=== PATIENT | male | born 1945 | race Caucasian/White ===

== ENCOUNTER 2017-01-08 21:09 | Inpatient (IN) | payer MEDICARE, OTHER ==
[~2017-01-08] VITALS: Ht 172.7 cm; Wt 74.0 kg
[2017-01-08] MEDS ORDERED: ROSU5TAB PO (21:21)
[2017-01-08] MEDS ORDERED: ASPI-496 PO (21:21)
[2017-01-08] MEDS ORDERED: ASPIRIN 325 MG TABLET PO STA (21:21)
[2017-01-08] MEDS ORDERED: NITR0.4T8 SL (21:30)
[2017-01-08] MEDS ORDERED: NITROGLYCERIN 0.4 MG BOTTLE (25 TABS) SL PRN (21:30)
[2017-01-08] MEDS: SODIUM CHLORIDE 0.9% 1,000 ML IV SCH (21:36)
[2017-01-08] MEDS ORDERED: FENTANYL PF 100 MCG/2ML ONE (21:41)
[2017-01-08] MEDS ORDERED: TICAGRELOR 90 MG TABLET ONE (21:41)
[2017-01-08] MEDS ORDERED: MIDAZOLAM 1 MG/ML, 5ML ONE (21:41)
[2017-01-08] MEDS ORDERED: NITROGLYCERIN 5 MG/ML, 10ML ONE (21:41)
[2017-01-08] MEDS ORDERED: VERAPAMIL 2.5 MG/ML, 2ML ONE (21:41)
[2017-01-08] MEDS ORDERED: BIVALIRUDIN 250 MG ONE (21:42)
[2017-01-08] MEDS ORDERED: LIDOCAINE 2%, 20ML ONE (21:42)
[2017-01-08] MEDS ORDERED: HEPARIN 1,000 UNITS/ML, 10ML ONE (21:42)
[2017-01-08] MEDS ORDERED: SODIUM CHLORIDE 0.9% 1,000 ML IV ONE (22:05)
[2017-01-08] MEDS ORDERED: SODIUM CHLORIDE 0.9% 1,000 ML IV SCH (22:26)
[2017-01-08] MEDS ORDERED: ENALAPRILAT 1.25 MG/ML, 2ML IVPush PRN (22:30)
[2017-01-08] MEDS ORDERED: OXYcodone IR 5MG TABLET PO PRN (22:30)
[2017-01-08] MEDS ORDERED: POLYETHYLENE GLYCOL 17 GM PACKET PO PRN (22:30)
[2017-01-08] MEDS ORDERED: BISACODYL 10 MG SUPP PR PRN (22:30)
[2017-01-08] MEDS ORDERED: hydrALAzine 20 MG/ML, 1ML IVPush PRN (22:30)
[2017-01-08] MEDS ORDERED: DOCUSATE 100 MG CAPSULE PO PRN (22:30)
[2017-01-08] MEDS ORDERED: morphine SULFATE 10 MG/ML, 1ML IVPush PRN (22:30)
[2017-01-08] MEDS ORDERED: MORPHINE SULFATE 4 MG/ML, 1ML IVPush PRN (22:30)
[2017-01-08] MEDS ORDERED: ONDANSETRON 2MG/ML, 2ML IVPush PRN (22:30)
[2017-01-08] MEDS ORDERED: PHENYLEPHRINE 10 MG/ML ONE (23:27)
[2017-01-08] MEDS ORDERED: EPTIFIBATIDE 20 MG/10 ML ONE ×2 (23:28→23:31)
[2017-01-08] MEDS ORDERED: ADENOSINE 6 MG/2 ML ONE (23:32)
[2017-01-09] MEDS ORDERED: PHENYLEPHRINE 10 MG/ML ONE
[2017-01-09] MEDS ORDERED: AMIODARONE 150 MG in DEXTROSE 5% 100 ML IV ONE (00:30)
[2017-01-09] MEDS ORDERED: MAALOX/HYOSCYAMINE/LIDOCAINE 45 ML BOTTLE PO ONE ×2 (00:30→01:30)
[2017-01-09] MEDS ORDERED: AMIODARONE 900 MG in DEXTROSE 5% 482 ML IV PRN (00:30)
[2017-01-09] MEDS ORDERED: FILTER 0.22 MICRON IV PRN (00:30)
[2017-01-09] MEDS ORDERED: BISACODYL 5 MG EC TABLET PO PRN (01:00)
[2017-01-09] MEDS ORDERED: ACETAMINOPHEN 325 MG TABLET PO PRN (01:00)
[2017-01-09] MEDS ORDERED: BISACODYL 10 MG SUPP PR PRN (01:00)
[2017-01-09] MEDS ORDERED: PHENYLEPHRINE 10 MG in SODIUM CHLORIDE 0.9% 249 ML IV PRN (01:00)
[2017-01-09] MEDS ORDERED: SODIUM CHLORIDE 0.9% 1,000 ML IV SCH (01:00)
[2017-01-09 01:22] VITALS: BP 107/76
[2017-01-09] MEDS: ENOXAPARIN 40 MG/0.4 ML SQ SCH (01:48)
[2017-01-09] MEDS: ONDANSETRON 2MG/ML, 2ML IV PRN ×2 (01:48→10:08)
[2017-01-09 01:56] LABS: IS PT STATUS REG ER OR PRE ER? NO
[2017-01-09] MEDS: ONDANSETRON 2MG/ML, 2ML IVPush PRN ×2 (02:00→10:06)
[2017-01-09] MEDS: SODIUM CHLORIDE 0.9% 1,000 ML IV SCH (02:51)
[2017-01-09] MEDS: ACETAMINOPHEN 325 MG TABLET PO PRN ×2 (02:55→11:00)
[2017-01-09] MEDS: ZOLPIDEM 5MG TABLET PO PRN ×2 (04:34→21:18)
[2017-01-09 04:47] LABS: PATH.CAST-FLAG NOT PRESENT; SPERM-FLAG NOT PRESENT; SRC-FLAG NOT PRESENT; XTAL-FLAG NOT PRESENT; YLC-FLAG NOT PRESENT
[2017-01-09 05:11] LABS: ASPARTATE AMINO TRANSFERASE 419 U/L (15-37); BLOOD UREA NITROGEN 22 mg/dL (7-18)
[2017-01-09] MEDS: EPTIFIBATIDE 100 ML IV SCH ×2 (05:56)
[2017-01-09] MEDS: ASPIRIN 81 MG TABLET EC PO SCH (05:56)
[2017-01-09 06:00] VITALS: BP 111/82
[2017-01-09] MEDS ORDERED: ASPIRIN 325 MG TABLET EC PO SCH (06:00)
[2017-01-09 07:40] LABS: IS PT STATUS REG ER OR PRE ER? NO
[2017-01-09] MEDS ORDERED: DOPAMINE/D5W PMX 250 ML ONE (08:39)
[2017-01-09] MEDS ORDERED: ASPIRIN 81 MG TABLET EC PO SCH (09:00)
[2017-01-09] MEDS: TICAGRELOR 90 MG TABLET PO SCH ×2 (10:01→20:36)
[2017-01-09] MEDS: SENNA/DOCUSATE TABLET PO SCH (10:01)
[2017-01-09] MEDS: CARVEDILOL 6.25 MG TABLET PO SCH ×2 (11:00→20:36)
[2017-01-09] MEDS: LISINOPRIL 5 MG TABLET PO SCH ×2 (11:00→20:40)
[2017-01-09] MEDS: FAMOTIDINE 20 MG TABLET PO SCH ×2 (11:00→20:40)
[2017-01-09 13:19] LABS: IS PT STATUS REG ER OR PRE ER? NO
[2017-01-09 17:34] VITALS: BP 113/56
[2017-01-09 20:30] VITALS: BP 126/70
[2017-01-09] MEDS: ATORVASTATIN 80 MG TABLET PO SCH (20:37)
[2017-01-09] MEDS ORDERED: ATORVASTATIN 40 MG TABLET PO SCH (21:00)
[2017-01-10 00:43] VITALS: BP 121/77
[2017-01-10] MEDS: ENOXAPARIN 40 MG/0.4 ML SQ SCH (00:46)
[2017-01-10 05:07] LABS: BLOOD UREA NITROGEN 17 mg/dL (7-18)
[2017-01-10 05:10] LABS: ASPARTATE AMINO TRANSFERASE 240 U/L (15-37)
[2017-01-10] MEDS: ASPIRIN 81 MG TABLET EC PO SCH (05:44)
[2017-01-10] MEDS: CARVEDILOL 6.25 MG TABLET PO SCH ×2 (05:44→17:46)
[2017-01-10 08:03] VITALS: BP 100/66
[2017-01-10] MEDS ORDERED: CLOPIDOGREL 300 MG TABLET PO ONE (08:30)
[2017-01-10] MEDS: IRBESARTAN 150 MG TABLET PO SCH (09:00)
[2017-01-10] MEDS: SENNA/DOCUSATE TABLET PO SCH (09:00)
[2017-01-10] MEDS ORDERED: FUROSEMIDE 20 MG/2 ML IV ONE ×2 (09:30→15:00)
[2017-01-10] MEDS: FAMOTIDINE 20 MG TABLET PO SCH ×2 (09:33→21:30)
[2017-01-10] MEDS ORDERED: FUROSEMIDE 20 MG/2 ML ONE (09:46)
[2017-01-10] MEDS ORDERED: GUAIFENESIN/COD200MG-20MG/10ML LIQUID PO PRN (10:00)
[2017-01-10] MEDS: ALUMINUM/MAG/SIMETHICONE 30 ML UDC PO PRN ×2 (11:47→17:46)
[2017-01-10 13:20] VITALS: BP 102/68
[2017-01-10] MEDS: ATORVASTATIN 80 MG TABLET PO SCH (21:00)
[2017-01-10 21:20] VITALS: BP 102/66
[2017-01-10] MEDS: ZOLPIDEM 5MG TABLET PO PRN (21:30)
[2017-01-11 00:49] VITALS: BP 96/91
[2017-01-11] MEDS: ENOXAPARIN 40 MG/0.4 ML SQ SCH (01:16)
[2017-01-11] MEDS: ASPIRIN 81 MG TABLET EC PO SCH (05:47)
[2017-01-11] MEDS: CARVEDILOL 6.25 MG TABLET PO SCH (05:47)
[2017-01-11 05:54] LABS: ASPARTATE AMINO TRANSFERASE 130 U/L (15-37); BLOOD UREA NITROGEN 17 mg/dL (7-18)
[2017-01-11 06:30] VITALS: BP 97/62
[2017-01-11] MEDS: SENNA/DOCUSATE TABLET PO SCH (08:02)
[2017-01-11] MEDS: IRBESARTAN 150 MG TABLET PO SCH (08:02)
[2017-01-11] MEDS: FAMOTIDINE 20 MG TABLET PO SCH (08:02)
[2017-01-11] MEDS ORDERED: CLOPIDOGREL 75 MG TABLET PO SCH (09:00)
[2017-01-11 10:05] VITALS: BP 97/61
[2017-01-11] MEDS ORDERED: FURO-93 PO (10:18)
[2017-01-11] MEDS ORDERED: CLOP75TA PO (10:18)
[2017-01-11] MEDS ORDERED: IRBE150T49 PO (10:18)
[2017-01-11] MEDS ORDERED: CARV3.12 PO (10:18)
[2017-01-11] MEDS ORDERED: FUROSEMIDE 20 MG TABLET PO SCH (10:30)
== END 2017-01-11 15:39 | disposition home or self-care (01) | DRG 246 ==
LOC: ED 22:23 → EDIP 22:26 → CCU 01-09 00:07 → 5SO 01-09 13:11 → DCLOUNGE 01-11 13:00
PROVIDERS: ADMIT Internal Medicine; ATTEND Internal Medicine
PROC: 027034Z Dilation of Coronary Artery, One Artery with Drug-eluting Intraluminal Device, Percutaneous Approach (ICD-10-PCS; principal; 2017-01-09)
PROC: 4A023N7 Measurement of Cardiac Sampling and Pressure, Left Heart, Percutaneous Approach (ICD-10-PCS; 2017-01-09)
PROC: B2111ZZ Fluoroscopy of Multiple Coronary Arteries using Low Osmolar Contrast (ICD-10-PCS; 2017-01-09)
PROC: B2151ZZ Fluoroscopy of Left Heart using Low Osmolar Contrast (ICD-10-PCS; 2017-01-09)
DX: I21.09 ST elevation (STEMI) myocardial infarction involving other coronary artery of anterior wall (principal); I50.21 Acute systolic (congestive) heart failure; D68.69 Other thrombophilia; E78.5 Hyperlipidemia, unspecified; I95.9 Hypotension, unspecified; K30 Functional dyspepsia; R79.89 Other specified abnormal findings of blood chemistry; R05 Cough; I48.0 Paroxysmal atrial fibrillation; I11.0 Hypertensive heart disease with heart failure; I25.10 Atherosclerotic heart disease of native coronary artery without angina pectoris; I25.5 Ischemic cardiomyopathy; Z88.1 Allergy status to other antibiotic agents; Z95.5 Presence of coronary angioplasty implant and graft; Z87.891 Personal history of nicotine dependence
CPT/HCPCS: 36415; 71010; 71020; 80047; 80053; 80061; 81003; 82550; 82553; 83036; 83735; 84443; 84484; 85014; 85018; 85025; 85610; 85730; 87081; 92920; 93005; 93306; 93458; 99156; 99157; 99291; C1769; C1876; C1894; J0153; J0583; J1265; J1644; J1650; J2250; J2405; J3010; J3490; 92928; C1725; C1887; J0282; J1327; J1940; J2370; J7030; J7050; J7060; Q9967

== ENCOUNTER 2017-01-13 15:15 | Emergency (ER) | payer MEDICARE, OTHER ==
[~2017-01-13] VITALS: Ht 172.7 cm; Wt 72.8 kg
[~2017-01-13 15:15] MED LIST: ASPI-496 PO; CARV3.12 PO; CLOP75TA PO; FURO-93 PO; IRBE150T49 PO; NITR0.4T8 SL; ROSU5TAB PO
[2017-01-13] MEDS ORDERED: SODIUM CHLORIDE 0.9% 1,000 ML IV ONE (15:20)
[2017-01-13] MEDS ORDERED: SODIUM CHLORIDE FLUSH 10ML SYR IVF ONE (15:30)
[2017-01-13 15:50] LABS: BLOOD UREA NITROGEN 19 mg/dL (7-18)
[2017-01-13] MEDS ORDERED: ROSU10TA PO (15:57)
[2017-01-13 16:25] VITALS: BP 115/72
== END 2017-01-13 16:28 | disposition home or self-care (01) ==
LOC: ED 16:10
DX: J98.01 Acute bronchospasm (principal); R50.9 Fever, unspecified; I25.10 Atherosclerotic heart disease of native coronary artery without angina pectoris; I10 Essential (primary) hypertension; Z87.891 Personal history of nicotine dependence; Z95.5 Presence of coronary angioplasty implant and graft
CPT/HCPCS: 36415; 71010; 80048; 82040; 83605; 84145; 85025; 87040; 93005; 96360; 99285; J7030

== ENCOUNTER → 2017-01-25 | Outpatient (CLI) | payer MEDICARE, OTHER ==
[~2017-01-25] MED LIST changes: +ROSU10TA PO
== END | disposition home or self-care (01) ==
LOC: RAD 17:02
PROVIDERS: ATTEND Family Medicine
DX: R05 Cough (principal)
CPT/HCPCS: 71020